=== PATIENT | male | born 1955 ===

== ENCOUNTER 2017-11-05 12:44 | Emergency (ER) | payer OTHER ==
[2017-11-05 12:58] VITALS: O2SAT 97
--- NOTE | 2017-11-05 13:54 | RAD ---
Date of service: 11/05/2017 PROCEDURE: Radiographs of the Right Shoulder HISTORY: right shoulder pain, after lifting COMPARISON: 11/20/2012 FINDINGS: BONES: No fracture is seen. No definite dislocation is noted. No new AC joint widening is seen. No lytic process is identified. No calcific bursitis is seen. Bony scapula and clavicle are intact, as well as the right ribs. No significant degenerative spurring is noted. JOINTS: See above SOFT TISSUES: Normal. OTHER FINDINGS: None. IMPRESSION: No evidence of fracture or dislocation.
--- NOTE | 2017-11-05 14:33 | ED PDOC ---
Upper Extremity Pain/Injury Time Seen by Provider: 11/05/17 13:24 Chief Complaint (Nursing): Upper Extremity Problem/Injury Chief Complaint (Provider): Right shoulder pain after lifting heavy paint History Per: Patient History/Exam Limitations: no limitations Onset/Duration Of Symptoms: Mins Current Symptoms Are (Timing): Still Present Quality: Sharp Severity: Moderate Pain Scale Rating Of: 7 Additional Complaint(s): 62 yo male presents with right shoulder pain. Pt states he was lifting an object onto a shelf and left a pop. Pt states he is now having pain if he attempts to raise the right arm. No numbness.tingling. No similar in the past. Past Medical History Reviewed: Historical Data, Nursing Documentation, Vital Signs Vital Signs: Last Vital Signs Temp 98.6 F 11/05/17 12:54 Pulse 94 H 11/05/17 12:54 Resp 16 11/05/17 12:54 BP 186/96 H 11/05/17 12:54 Pulse Ox 97 11/05/17 12:54 - Medical History PMH: Anxiety, Diabetes, HTN - Surgical History Surgical History: Back Surgery - Family History Family History: States: Diabetes - Home Medications Home Medications: Ambulatory Orders Medication Instructions Recorded Acetaminophen/Oxycodone Hydr 1 tab PO Q6 PRN #10 tab 01/13/14 [Percocet 325 mg-5 mg] Acetaminophen/Oxycodone Hydr 1 tab PO Q6 PRN #10 tab 01/20/14 [Percocet 325 mg-5 mg] Acetaminophen with Codeine 1 tab PO Q6H PRN #10 tab 01/29/16 [Tylenol with Codeine No. 3 300 mg-30 mg] Ondansetron ODT [Zofran ODT] 4 mg PO Q8H PRN #20 odt 01/29/16 Sulfamethoxazole/Trimethoprim 1 tab PO BID #20 tab 01/29/16 [Bactrim DS 800 mg-160 mg] traMADol [Ultram] 50 mg PO Q6H PRN #20 tab 11/05/17 - Allergies Allergies/Adverse Reactions: Allergies Allergy/AdvReac Type Severity Reaction Status Date / Time diphenhydramine HCl Allergy SWELLING Verified 01/06/17 18:18 [From Benadryl] morphine Allergy drowsiness Verified 01/06/17 18:16 Review of Systems ROS Statement: Except As Marked, All Systems Reviewed And Found Negative Constitutional: Negative for: Fever, Chills Genitourinary Male: Negative for: Dysuria, Frequency Musculoskeletal: Positive for: Shoulder Pain Physical Exam - Reviewed Nursing Documentation Reviewed: Yes Vital Signs Reviewed: Yes - Physical Exam Appears: Positive for: Well, Non-toxic, No Acute Distress Head Exam: Positive for: ATRAUMATIC, NORMAL INSPECTION, NORMOCEPHALIC Skin: Positive for: Normal Color, Warm, DRY Eye Exam: Positive for: Normal appearance ENT: Positive for: Normal ENT Inspection Neck: Positive for: Normal, Painless ROM Cardiovascular/Chest: Positive for: Regular Rate, Rhythm Respiratory: Positive for: Normal Breath Sounds. Negative for: Accessory Muscle Use Back: Positive for: Normal Inspection Extremity: Negative for: Normal ROM (Shoulder - Decreased active ROM, slightly improved with assistance - Full ROM in right elbow. ) Neurologic/Psych: Positive for: Alert, Oriented - ECG O2 Sat by Pulse Oximetry: 97 Medical Decision Making Medical Decision Making: XR without acute fracture or dislocation. Pt given shoulder sling. Discussed f/u outpatient orthopedics appointment. Disposition - Clinical Impression Clinical Impression: Shoulder injury - Patient ED Disposition Is Patient to be Admitted: No - Disposition Referrals: Mina Velazquez MD [Primary Care Provider] - Zacarias Orozco MD [Staff Provider] - Disposition: Routine/Home Disposition Time: 14:32 Condition: IMPROVED Prescriptions: traMADol [Ultram] 50 mg PO Q6H PRN #20 tab PRN Reason: Pain Instructions: Shoulder Sprain (DC) Forms: Ceon (Hungarian)
[2017-11-05 14:42] VITALS: BP 154/85; PULSE 87; RESP 17; TEMP 98.7
== END 2017-11-05 14:42 | disposition home or self-care (01) ==
LOC: H.ER 12:44
DX: S46.911A Strain of unspecified muscle, fascia and tendon at shoulder and upper arm level, right arm, initial encounter (principal); X50.9XXA Other and unspecified overexertion or strenuous movements or postures, initial encounter; Y92.89 Other specified places as the place of occurrence of the external cause; E11.9 Type 2 diabetes mellitus without complications; F41.9 Anxiety disorder, unspecified; I10 Essential (primary) hypertension